=== PATIENT | female | born 1945 | race Caucasian/White ===

== ENCOUNTER 2016-09-09 10:06 | Emergency (ER) | payer OTHER ==
--- NOTE | 2016-09-09 11:43 | DIAGNOSTIC IMAGING REPORT ---
PROCEDURE: XR CHEST 1 VIEW INDICATION: SHORTNESS OF BREATH TECHNIQUE: Portable AP view 1030 hours. COMPARISON: None. FINDINGS: There is mild to moderate pleural and parenchymal scarring at the left lung base. Lungs are otherwise clear. Heart and mediastinum are normal. Thorax is normal. IMPRESSION: 1. Mild to moderate pleural and parenchymal scarring at the left lung base 2. Otherwise negative chest.
--- NOTE | 2016-09-09 13:06 | ED NURSING NOTES ---
Clinical Report - Nurses [facility] [address] [place] [address] 09/09/2016 10:05 Patient: JOANN AWAN TRIAGE Triage time 1005. Acuity: LEVEL 2. Chief Complaint: (Code stroke called at 1005, arrival at 1010. Paatient found down on the ground outside residence. Had gone outside to smoke. Patient remembers standing, then waking with EMS at her side. Alert and confused at the time. Patient states, "I have not slept much since [place], because of my headaches.). Alert. No acute distress. SEPSIS SCREEN: Sepsis Screen: negative. Negative (no infection suspected/documented). VIMAL COMA SCORE: [place] Coma Scale: 15- eyes open spontaneously (4); best verbal response- oriented x 4 (5); best motor response- obeys commands (6). --11:10 Raven Roman R.N. 10:11 09/09/16. BP: 145/102. HR: 83. RR: 18. O2 saturation: 94%. Temp: 98 F. Pain level now: 02/02. --11:10 Raven Roman R.N. Weight: 67.1 kg stated. Height/Length: 66 inches Per Patient. BMI: 23.9. --10:57 Raven Roman R.N. Medications Insulin lantis 16 units hs . --11:04 Rvaen Roman R.N. Caltrate + D 600mg 1 day . --11:05 Raven Roman R.N. Diclofenac Oral 50mg bid . --11:05 Raven Roman R.N. Divalproex Sodium Oral 500mg bid . --11:06 Raven Roman R.N. Simvastatin Oral 20 mg, daily. --11:06 Raven Roman R.N. ASA Oral 81mg day . --11:07 Raven Roman R.N. Fiberlax day . --11:07 Raven Roman R.N. Levothyroxine Sodium Oral 150 mcg, daily. --11:07 Raven Roman R.N. Vitamins Oral 1 pill, daily. --11:07 Raven Roman R.N. TraMADol HCl Oral 50 mg, 3x a day. --11:08 Raven Roman R.N. Acetaminophen Oral 650 mg, 4x a day as needed. --11:08 Raven Roman R.N. Vicodin Oral 1-2 tabs q 6 hrs prn . --11:09 Raven Roman R.N. Allergies Sulfa Antibiotics. --11:10 Raven Roman R.N. History Arrived by EMS. Historian: patient. Primary physician (Rekha). This started today. ( Bedside glucose 368mg/dl at 1010). She has had weakness and a cough. Reports muscle aches. Treatment MEDICAL OFFICE ASST: EMS treatment MEDICAL OFFICE ASST verbally communicated. See EMS report. Oxygen administered by nasal cannula and at 2 liters/minute. Finger stick glucose performed (500). Pre-hospital 12-lead EKG. IV fluid at keep open (35 mL/hr). BP: 200 / 118 sitting. HR: 90. RR: 16. O2 saturation: 93 % room air. ( Awake, alert, oriented.). PAST MEDICAL HX: Immunizations: status is unknown. The patient is post-menopausal. SOCIAL HX: Light tobacco smoker (cigarette)- less than 1/2 a pack per day. No alcohol use or drug use. FALL RISK ASSESSMENT: Fall risk assessment completed. No fall risk identified. NUTRITIONAL RISK ASSESSMENT: The nutritional risk assessment revealed no deficiencies. FUNCTIONAL ASSESSMENT: Functional assessment: no impairments noted. LEARNING NEEDS ASSESSMENT: The learning needs assessment revealed no barriers. SKIN INTEGRITY ASSESSMENT: Skin integrity risk assessment completed. No skin integrity risk identified. --11:10 Raven Roman R.N. ( 1010, provider at the bedside, did a stroke scale, no head ct ordered, at this time.). --11:11 Raven Roman R.N. Treatment MEDICAL OFFICE ASST: IV fluid given (50 ml infused enroute, via lac iv site.). --11:18 Raven Roman R.N. PROBLEMS: Sleep deprevation. Dm . Htn . Graves disease. Vision rt eye zero w/o glasses. . Cholesterol problems. --10:56 Raven Roman R.N. Seizures. --11:10 Raven Roman R.N. ADDITIONAL SURGERIES: Appendectomy. Carpal Tunnel Surgery. Eye rt . Hip rt . --10:56 Raven Roman R.N. Interventions ID band on patient. To room. --11:10 Raven Roman R.N. 10:10 09/09/2016 Site #1 started prior to arrival by EMS via IV in the right antecubital space with an 20g angiocath, with aseptic technique and good blood return; one attempt. Saline lock flushed with 10 mL saline. --10:49 Raven Roman R.N. 10:10 09/09/2016 Site #2 started prior to arrival by EMS via IV in the left antecubital space with an 20g angiocath, with aseptic technique and good blood return; one attempt. Saline lock flushed with saline. --10:49 Raven Roman R.N. PHYSICAL ASSESSMENT To room via stretcher. Patient gowned. GENERAL / NEURO / PSYCH: Alert. Oriented X 4. Appears in pain and anxious. HEENT: Mucous membranes are pink. RESPIRATORY: Respirations not labored. CVS: Normal sinus rhythm noted. Cardiac rhythm: normal sinus rhythm; (82). Capillary refill less than 2 seconds. GI / : Abdomen nontender. SKIN: Skin intact. Skin is warm and dry. Normal skin turgor. --11:12 Raven Roman R.N. NURSING PROGRESS NOTES 10:10. Finger stick glucose: 368 mg/dL. --11:14 Raven Roman R.N. 10:15. Oxygen administered by nasal cannula at 2 liters. tin recovery worker, pulse oximeter and NIBP monitor placed on patient; corporate webmaster- Lead II; monitor alarms on. Patient gowned. Head of bed elevated. Two patient identifiers checked. Call light placed in reach. Side rails up x 2. Bed placed in lowest position. Brakes of bed on. Patient ready for evaluation. --11:13 Raven Roman R.N. 10:20. Patient ID band checked for patient name: patient confirmed. Blood samples drawn from the right antecubital space peripheral IV site with syringe by nurse per protocol ; labeled in presence of the patient and sent to lab: rainbow set and fonseca top. Initial blood discarded and additional blood sent to lab. Line flushed with 10 mL normal saline post blood draw. --11:14 Raven Roman R.N. 10:30. Portable chest x-ray ordered, performed and shown to the ED physician. --11:14 Raven Roman R.N. ( ABG's drawn by RT at 1100.). --11:15 Raven Roman R.N. 10:48 09/09/2016 Insulin REG IVP 10 unit given over 1 minute(s) via site #1. Allergies verified and confirmed 5 rights. IV patency established. IV site checked: no pain, redness, or swelling. IV flushed thoroughly pre- and post-medication administration. IVP given by RN. --11:17 Raven Roman R.N. 11:00 09/09/2016 Started bag #1 1000 mL IV Fluids IV NS (Saline); at 1000 mL/hr over 1 hour(s) via site #2 via IV pump. Allergies verified and confirmed 5 rights. IV patency established. IV site checked: no pain, redness, or swelling. IV flushed thoroughly pre- and post-medication administration. --11:16 Raven Roman R.N. 10:45. ( Up to the bsc and voided w/o difficulty, 300ml clear urine.). --11:19 Raven Roman R.N. 11:19 09/09/16. BP: 127/90. HR: 64. RR: 17. O2 saturation: 94% on room air. --11:20 Raven Roman R.N. EKG time: (10:34 AM). EKG was performed by a tech and shown to the ED physician. --11:29 Tori Jimenez 12:24 09/09/16. Patient ID band checked for patient name: patient confirmed. Instructions provided to collect clean catch urine and patient verbalized understanding. Clean catch urine collected with return of yellow-colored clear urine; sample sent to lab for urinalysis and culture. Specimen labeled in the presence of the patient. --12:24 Raven Roman R.N. 12:24 09/09/16. BP: 124/70. HR: 71. RR: 14. O2 saturation: 95% on room air. 11:19 09/09/16. BP: 127/90. HR: 64. RR: 17. O2 saturation: 94% on room air. --12:25 Raven Roman R.N. Reassurance given to the patient (Patient emotional, re missing brunch and confucianist.). --12:55 Raven Roman R.N. 13:07 09/09/2016 Acetaminophen (APAP) PO 975 mg given. Allergies verified and confirmed 5 rights. --13:07 Raven Roman R.N. Glucose: 101. --13:40 Tori Jimenez 14:27 09/09/2016 Site #1 removed upon discharge. Catheter intact. Bandaid applied. --14:52 Raven Roman R.N. 14:30 09/09/2016 Site #2 removed. Catheter intact. Bandaid applied. --14:54 Raven Roman R.N. DISPOSITION / DISCHARGE 15:15. Condition at departure: improved. No learning barriers present. Discharge instructions provided and reviewed with the patient. Patient verbalized understanding. Written instructions provided in French. ( Patient waiting for son in the waiting room.). Medication list reviewed and validated. --16:26 Raven Roman R.N. 15:15 09/09/16. BP: 126/74. HR: 71. RR: 16. O2 saturation: 97% on room air. Pain level now: 10/05. 13:07 09/09/16. O2 saturation: 97% on room air. 12:24 09/09/16. BP: 124/70. HR: 71. RR: 14. O2 saturation: 95% on room air. 11:19 09/09/16. BP: 127/90. HR: 64. RR: 17. O2 saturation: 94% on room air. 10:11 09/09/16. BP: 145/102. HR: 83. RR: 18. O2 saturation: 94%. Temp: 98 F. Pain level now: 02/02. --16:26 Raven Roman R.N. Locked/Released at 09/09/2016 16:26 by Raven Roman R.N.
--- NOTE | 2016-09-09 13:06 | ED NURSING NOTES ---
Clinical Report - Nurses [facility] [address] [place] [address] 09/09/2016 10:05 Patient: JOANN AWAN TRIAGE Triage time 1005. Acuity: LEVEL 2. Chief Complaint: (Code stroke called at 1005, arrival at 1010. Paatient found down on the ground outside residence. Had gone outside to smoke. Patient remembers standing, then waking with EMS at her side. Alert and confused at the time. Patient states, "I have not slept much since [place], because of my headaches.). Alert. No acute distress. SEPSIS SCREEN: Sepsis Screen: negative. Negative (no infection suspected/documented). VIMAL COMA SCORE: [place] Coma Scale: 15- eyes open spontaneously (4); best verbal response- oriented x 4 (5); best motor response- obeys commands (6). --11:10 Raevn Roman R.N. 10:11 09/09/16. BP: 145/102. HR: 83. RR: 18. O2 saturation: 94%. Temp: 98 F. Pain level now: 02/02. --11:10 Raven Roman R.N. Weight: 67.1 kg stated. Height/Length: 66 inches Per Patient. BMI: 23.9. --10:57 Raven Roman R.N. Medications Insulin lantis 16 units hs . --11:04 Raven Roman R.N. Caltrate + D 600mg 1 day . --11:05 Raven Roman R.N. Diclofenac Oral 50mg bid . --11:05 Raven Roman R.N. Divalproex Sodium Oral 500mg bid . --11:06 Raven Roman R.N. Simvastatin Oral 20 mg, daily. --11:06 Raven Roman R.N. ASA Oral 81mg day . --11:07 Raven Roman R.N. Fiberlax day . --11:07 Raven Roman R.N. Levothyroxine Sodium Oral 150 mcg, daily. --11:07 Raven Roman R.N. Vitamins Oral 1 pill, daily. --11:07 Raven Roman R.N. TraMADol HCl Oral 50 mg, 3x a day. --11:08 Raven Roman R.N. Acetaminophen Oral 650 mg, 4x a day as needed. --11:08 Raven Roman R.N. Vicodin Oral 1-2 tabs q 6 hrs prn . --11:09 Raven Roman R.N. Allergies Sulfa Antibiotics. --11:10 Raven Roman R.N. History Arrived by EMS. Historian: patient. Primary physician (Rekha). This started today. ( Bedside glucose 368mg/dl at 1010). She has had weakness and a cough. Reports muscle aches. Treatment TUMBLER TENDER: EMS treatment TUMBLER TENDER verbally communicated. See EMS report. Oxygen administered by nasal cannula and at 2 liters/minute. Finger stick glucose performed (500). Pre-hospital 12-lead EKG. IV fluid at keep open (35 mL/hr). BP: 200 / 118 sitting. HR: 90. RR: 16. O2 saturation: 93 % room air. ( Awake, alert, oriented.). PAST MEDICAL HX: Immunizations: status is unknown. The patient is post-menopausal. SOCIAL HX: Light tobacco smoker (cigarette)- less than 1/2 a pack per day. No alcohol use or drug use. FALL RISK ASSESSMENT: Fall risk assessment completed. No fall risk identified. NUTRITIONAL RISK ASSESSMENT: The nutritional risk assessment revealed no deficiencies. FUNCTIONAL ASSESSMENT: Functional assessment: no impairments noted. LEARNING NEEDS ASSESSMENT: The learning needs assessment revealed no barriers. SKIN INTEGRITY ASSESSMENT: Skin integrity risk assessment completed. No skin integrity risk identified. --11:10 Raven Roman R.N. ( 1010, provider at the bedside, did a stroke scale, no head ct ordered, at this time.). --11:11 Raven Roman R.N. Treatment TUMBLER TENDER: IV fluid given (50 ml infused enroute, via lac iv site.). --11:18 Raven Roman R.N. PROBLEMS: Sleep deprevation. Dm . Htn . Graves disease. Vision rt eye zero w/o glasses. . Cholesterol problems. --10:56 Raven Roman R.N. Seizures. --11:10 Raven oRman R.N. ADDITIONAL SURGERIES: Appendectomy. Carpal Tunnel Surgery. Eye rt . Hip rt . --10:56 Raven Roman R.N. Interventions ID band on patient. To room. --11:10 Raven Roman R.N. 10:10 09/09/2016 Site #1 started prior to arrival by EMS via IV in the right antecubital space with an 20g angiocath, with aseptic technique and good blood return; one attempt. Saline lock flushed with 10 mL saline. --10:49 Raven Roman R.N. 10:10 09/09/2016 Site #2 started prior to arrival by EMS via IV in the left antecubital space with an 20g angiocath, with aseptic technique and good blood return; one attempt. Saline lock flushed with saline. --10:49 Raven Roman R.N. PHYSICAL ASSESSMENT To room via stretcher. Patient gowned. GENERAL / NEURO / PSYCH: Alert. Oriented X 4. Appears in pain and anxious. HEENT: Mucous membranes are pink. RESPIRATORY: Respirations not labored. CVS: Normal sinus rhythm noted. Cardiac rhythm: normal sinus rhythm; (82). Capillary refill less than 2 seconds. GI / : Abdomen nontender. SKIN: Skin intact. Skin is warm and dry. Normal skin turgor. --11:12 Raven Roman R.N. NURSING PROGRESS NOTES 10:10. Finger stick glucose: 368 mg/dL. --11:14 Raven Roman R.N. 10:15. Oxygen administered by nasal cannula at 2 liters. timber mill worker, pulse oximeter and NIBP monitor placed on patient; boiler/chiller technician- Lead II; monitor alarms on. Patient gowned. Head of bed elevated. Two patient identifiers checked. Call light placed in reach. Side rails up x 2. Bed placed in lowest position. Brakes of bed on. Patient ready for evaluation. --11:13 Raven Roman R.N. 10:20. Patient ID band checked for patient name: patient confirmed. Blood samples drawn from the right antecubital space peripheral IV site with syringe by nurse per protocol ; labeled in presence of the patient and sent to lab: rainbow set and fonseca top. Initial blood discarded and additional blood sent to lab. Line flushed with 10 mL normal saline post blood draw. --11:14 Raven Roman R.N. 10:30. Portable chest x-ray ordered, performed and shown to the ED physician. --11:14 Raven Roman R.N. ( ABG's drawn by RT at 1100.). --11:15 Raven Roman R.N. 10:48 09/09/2016 Insulin REG IVP 10 unit given over 1 minute(s) via site #1. Allergies verified and confirmed 5 rights. IV patency established. IV site checked: no pain, redness, or swelling. IV flushed thoroughly pre- and post-medication administration. IVP given by RN. --11:17 Raven Roman R.N. 11:00 09/09/2016 Started bag #1 1000 mL IV Fluids IV NS (Saline); at 1000 mL/hr over 1 hour(s) via site #2 via IV pump. Allergies verified and confirmed 5 rights. IV patency established. IV site checked: no pain, redness, or swelling. IV flushed thoroughly pre- and post-medication administration. --11:16 Raven Roman R.N. 10:45. ( Up to the bsc and voided w/o difficulty, 300ml clear urine.). --11:19 Raven Roman R.N. 11:19 09/09/16. BP: 127/90. HR: 64. RR: 17. O2 saturation: 94% on room air. --11:20 Raven Roman R.N. EKG time: (10:34 AM). EKG was performed by a tech and shown to the ED physician. --11:29 Tori Jimenez 12:24 09/09/16. Patient ID band checked for patient name: patient confirmed. Instructions provided to collect clean catch urine and patient verbalized understanding. Clean catch urine collected with return of yellow-colored clear urine; sample sent to lab for urinalysis and culture. Specimen labeled in the presence of the patient. --12:24 Raven Roman R.N. 12:24 09/09/16. BP: 124/70. HR: 71. RR: 14. O2 saturation: 95% on room air. 11:19 09/09/16. BP: 127/90. HR: 64. RR: 17. O2 saturation: 94% on room air. --12:25 Raven Roman R.N. Reassurance given to the patient (Patient emotional, re missing brunch and scientologist.). --12:55 Raven Roman R.N. 13:07 09/09/2016 Acetaminophen (APAP) PO 975 mg given. Allergies verified and confirmed 5 rights. --13:07 Raven Roman R.N. Glucose: 101. --13:40 Tori Jimenez 14:27 09/09/2016 Site #1 removed upon discharge. Catheter intact. Bandaid applied. --14:52 Raven Roman R.N. 14:30 09/09/2016 Site #2 removed. Catheter intact. Bandaid applied. --14:54 Raven Roman R.N. DISPOSITION / DISCHARGE 15:15. Condition at departure: improved. No learning barriers present. Discharge instructions provided and reviewed with the patient. Patient verbalized understanding. Written instructions provided in [place]. ( Patient waiting for son in the waiting room.). Medication list reviewed and validated. --16:26 Raven Roman R.N. 15:15 09/09/16. BP: 126/74. HR: 71. RR: 16. O2 saturation: 97% on room air. Pain level now: 10/05. 13:07 09/09/16. O2 saturation: 97% on room air. 12:24 09/09/16. BP: 124/70. HR: 71. RR: 14. O2 saturation: 95% on room air. 11:19 09/09/16. BP: 127/90. HR: 64. RR: 17. O2 saturation: 94% on room air. 10:11 09/09/16. BP: 145/102. HR: 83. RR: 18. O2 saturation: 94%. Temp: 98 F. Pain level now: 02/02. --16:26 Raven Roman R.N. Locked/Released at 09/09/2016 16:26 by Raven Roman R.N.
--- NOTE | 2016-09-09 13:06 | ED CLINICAL REPORT ---
Clinical Report - Physicians/Mid Levels [facility] [address] [place] [address] 09/09/2016 10:05 Patient: JOANN AWAN Time Seen: 10:22; upon arrival, initial patient contact. Arrived- By ambulance. Historian- patient and EMS personnel. HISTORY OF PRESENT ILLNESS Chief Complaint: WEAKNESS. The patient has had new onset of weakness of the left arm (moderate), (several). No numbness, tingling, visual disturbance, impaired swallowing or recent fall. She has had difficulty with speech. She has had difficulty walking. This started about 1 hour ago and patient was witnessed to be last known well (at 0930 AM). It is gone now. Is now gone (Sypmtoms for BLS, once Medics arrived, asymptomatic). At its maximum deficit described as moderate. When seen in the E.D., it was gone. No dizziness, altered mental status, seizure or blackouts. Usually is alert and oriented X3 and has normal mobility. Similar symptoms previously: None. Recent medical care: Not recently seen/assessed. REVIEW OF SYSTEMS No fever, headache, head injury, chest pain or difficulty breathing. No cough or sputum production. All systems otherwise negative, except as recorded above. PAST HISTORY ( Sleep deprevation. Dm . Htn . Graves disease. Vision rt eye zero w/o glasses. . Cholesterol problems. Seizures. Exopthalmos ADDITIONAL SURGERIES: Appendectomy. Carpal Tunnel Surgery. Eye rt . Hip rt .). SOCIAL HISTORY Current every day smoker. No alcohol use or drug use. ADDITIONAL NOTES The nursing notes have been reviewed with agreement regarding the chief complaint, PMH and patient medications and allergies. PHYSICAL EXAM Vital Signs: 09/09/2016 10:11 BP: 145/102. HR: 83. RR: 18. O2 saturation: 94%. Temp: 98 F. Pain level now: 610. Have been reviewed. Hypertensive. Heart rate normal. Respiratory rate normal. Temperature normal. Oxygen saturation low. Appearance: Alert. No acute distress. Head: Head atraumatic. Eyes: Pupils equal, round and reactive to light. Right eye: (Exopthalomos). 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 ENT: Normal ENT inspection. Airway intact. Neck: Normal inspection. Neck supple. CVS: Normal heart rate and rhythm. Heart sounds normal. Respiratory: No respiratory distress. Breath sounds normal. Skin: Skin warm and dry. Normal skin color. No rash. Extremities: Extremities exhibit normal ROM. No lower extremity edema. Neuro: Alert. Oriented X 3. Mood/affect normal. Speech normal. Cranial nerves normal (as tested). No cerebellar findings. No motor deficit. No sensory deficit. LABS, X-RAYS, AND EKG EKG: EKG time: (1034). No acute process. No acute ischemia. Normal sinus rhythm. Rate: 76. Normal P waves. Normal ALTA. Normal QRS complex. Normal axis. Normal QT and QTc. ST elevation in lead V3- consistent with early repolarization. The study has been interpreted contemporaneously by me. The study has been independently viewed by me. The EKG appears to be a good tracing. Interpretation time: 1035. Chest X-ray: (1. Mild to moderate pleural and parenchymal scarring at the left lung base 2. Otherwise negative chest.). Views: AP. Technique: good. The X-rays were independently viewed by me and interpreted contemporaneously by me. Prior films were not available for comparison. Laboratory Tests: UA-Culture if indicated: (JULIA: 09/09/2016 12:15) ( MsgRcvd 09/09/2016 12:36) Final results Test Result Flag Units (Reference) URINE COLOR YELLOW URINE APPEARANCE CLEAR URINE GLUCOSE 3+ (NEGATIVE) URINE BILIRUBIN NEGATIVE (NEGATIVE) URINE KETONE NEGATIVE (NEGATIVE) URINE SPECIFIC GRAVITY 1.010 (1.010-1.030) URINE PH 6.0 (5.0-8.0) URINE PROTEIN NEGATIVE (NEGATIVE) URINE UROBILINOGEN 0.2 EU/dL (0.2-1.0) URINE NITRITE NEGATIVE (NEGATIVE) URINE BLOOD NEGATIVE (NEGATIVE) URINE LEUK ESTERASE POSITIVE (NEGATIVE) URINE RBC NONE SEEN rbc/hpf (0-1) URINE WBC 15-25 wbc/hpf (0-1) URINE EPITHELIAL CELLS 3-5 EPI/hpf (0-5) URINE BACTERIA MODERATE (2+ TO 3+) (NONE SEEN) 2+ URINE COMMENT CULTURE INDICATED URINE CULTURES ARE SET-UP BASED ON THE FOLLOWING CRITERIA:POSITIVE NITRITEPOSITIVE LEUKOCYTE ESTERASEGREATER THAN 10 WHITE BLOOD CELLSMODERATE (2+) OR GREATER BACTERIA CBC w Diff: (JULIA: 09/09/2016 10:15) ( WvgRcvd 09/09/2016 10:35) Final results Test Result Flag Units (Reference) WHITE BLOOD COUNT 9.4 K/uL (4.5-11.5) RED BLOOD COUNT 4.58 M/uL (4.00-5.20) HEMOGLOBIN 13.6 gm/dL (12.0-16.0) HEMATOCRIT 39.5 % (36.0-46.0) MEAN CELL VOLUME 86 fL (80-100) MEAN CORPUSCULAR HGB 30 pg (26-34) MEAN CORPUSCULAR HGB CONC 35 g/dL (31-37) RED CELL DISTRIBUTION WIDTH 14.5 % (11.6-14.8) PLATELET COUNT 216 K/uL (150-400) NEUTROPHIL % 68.5 % (50-75) LYMPH % 24.7 L % (25-40) MONO % 5.1 % (3-14) EOSINOPHIL % 1.3 % (0-4) BASOPHIL % 0.4 % (0-2) PT with INR: (JULIA: 09/09/2016 10:15) ( MsgRcvd 09/09/2016 10:39) Final results Test Result Flag Units (Reference) INR 0.9 (0.8-1.2) Low Intensity Therapy: INR 1.5-2.0 PT range 18.5-23.1Mod.Intensity Therapy: INR 2.0-3.0 PT range 23.1-31.5High Intensity Therapy: INR 2.5-3.5 PT range 27.4-35.5High Intensity Therapy 2: INR 3.0-4.0 PT range 31.5-39.3 APTT 33 SECONDS (24-34) FIBRINOGEN 334 mg/dL (193-455) D-DIMER QUANTITATIVE 0.42 ug/mLFEU (0.27-0.52) The primary value of this quantitative assay relates toits negative predictive value (i.e. exclusion) of pulmonaryembolism/deep vein thrombosis/DIC.Elevated levels of d-dimer may also occur with:, age, cancer, inflammation, liver disease,post-op, infection, hematoma, coronary disease, peripheralarteriopathy, bleeding disorders and thrombolytic treatment.Results should be correlated with other clinical andradiological data.Testing Methodology: Latex Immunoassay Acetone, Serum: (JULIA: 09/09/2016 10:15) ( MsgRcvd 09/09/2016 10:49) Final results Test Result Flag Units (Reference) ACETONE, SERUM QUALITATIVE NEGATIVE (NEGATIVE) CMP: (JULIA: 09/09/2016 10:15) ( MsgRcvd 09/09/2016 10:42) Final results Test Result Flag Units (Reference) GLUCOSE 433 H mg/dL (70-110) BUN 30 H mg/dL (7-18) CREATININE 1.3 mg/dL (0.6-1.3) Estimated GFR 42.92 mL/min Estimated GFR- 52.01 mL/min Note: Persistent reduction over 3 months in eGFR<60 mL/min/1.73 m2 defines CKD. Patients with eGFR values>=60 mL/min/1.73 m2 may also have CKD if evidence ofpersistent proteinuria. Additional information may be foundat www.kidney.org. SODIUM 134 L mmol/L (136-145) POTASSIUM 4.9 mmol/L (3.5-5.1) CHLORIDE 97 L mmol/L (98-107) CARBON DIOXIDE 29 mmol/L (21-32) CALCIUM 8.9 mg/dL (8.5-10.1) TOTAL PROTEIN 7.1 g/dL (6.4-8.2) ALBUMIN 3.8 g/dL (3.3-5.0) BILIRUBIN, TOTAL 0.5 mg/dL (0.0-1.0) ALKALINE PHOSPHATASE 84 U/L (46-116) AST (SGOT) 56 H U/L (15-37) ALT (SGPT) 65 U/L (12-78) ABG: (JULIA: 09/09/2016 10:25) ( [facility] 09/09/2016 11:07) Final results Test Result Flag Units (Reference) FIO2 0.28 L % (20-101) ABG MODE OF DELIVERY NC MODIFIED DARRICK TEST POSITIVE? YES LITERS PER MIN. 2 L/MIN (0-20) ABG PATIENT RESP RATE 20 /MIN ARTERIAL BLOOD GAS SITE RR ARTERIAL BLOOD GAS pH 7.48 H (7.35-7.45) ABG PCO2 31.7 L mmHg (35-45) ABG PO2 63.8 mmHg (60.0-80.0) ABG BASE EXCESS 0.4 H mmol/L (-6.0--6.0) ABG HCO3 23.6 mmol/L (20.0-26.0) ABG TCO2 24.6 mmol/L (24.0-30.0) ABG [id number] 101.2 H mmHg (7.0-14.0) *NOTE: Normal rangeis based on aFIO2 of 21% ABG SAT O2 92.2 L % (95.1-100.0) ABG TOTAL HEMOGLOBIN 14.0 g/dL (12.0-16.0) ABG O2 HEMOGLOBIN 90.3 L % (95.0-100.0) ABG CARBOXYHEMOGLOBIN 1.8 H % (0.5-1.5) ABG METHEMOGLOBIN 0.3 L % (0.4-1.5) ABG RHEMOGLOBIN 7.6 % . PROGRESS AND PROCEDURES Course of Care: 13:05 09/09/16. Pt without any signs of CVA upon arrival. A&O x 3, no pronator drift and nl CN exam. 09/09/2016 13:07 O2 saturation: 97%. 09/09/2016 12:24 BP: 124/70. HR: 71. RR: 14. O2 saturation: 95%. Vital Signs: have been reviewed as normal. Disposition: Discharged to care home in good and improved condition. Condition: good. CLINICAL IMPRESSION Moderate hyperglycemia INSTRUCTIONS Follow a low salt diet. Do not smoke. Seek medical help to quit smoking. Your Current Medications: CONTINUE TAKING THE FOLLOWING MEDICATIONS: Acetaminophen Oral : 650 mg 4x a day, prn. ASA Oral : 81mg day. Caltrate + D 600mg 1 day *. Diclofenac Oral : 50mg bid. Divalproex Sodium Oral : 500mg bid. Fiberlax day *. Insulin lantis 16 units hs *. Levothyroxine Sodium Oral : 150 mcg daily. Vitamins Oral : 1 pill daily. Simvastatin Oral : 20 mg daily. TraMADol HCl Oral : 50 mg 3x a day. Vicodin Oral : 1-2 tabs q 6 hrs prn. Follow-up: Follow up with your doctor in about two days. Call for an appointment. Screening today revealed the patient's blood pressure to be in the normal range. (Electronically signed by Hunter Parker Dr. 09/09/2016 22:54)
--- NOTE | 2016-09-09 13:06 | ED ORDER SUMMARY ---
..... Patient: JOANN AWAN OrderSheet [facility] VisitID: [id number] [address] [place] [address] 71y, F Registration Date/Time: 09/09/2016 ORDER SHEET Weight: 67.1 kg (stated) Allergies: Sulfa Antibiotics GENERAL ORDERS: Chest 1V Urgent (10:09/09/2016 Franko Thomas) (Ack 10:38 LTapper) (11:00 Daryl) Stroke Panel Stat (:09/09/2016 Franko Thomas) (Ack 10:38 LTapper) (11:17 SRoberts R.N.) Acetone, Serum Urgent (:09/09/2016 Franko Thomas) (Ack 10:38 LTapper) (11:17 SRoberts R.N.) ABG (G) Urgent (:09/09/2016 Franko Thomas) (Ack 10:38 LTapper) (11:17 SRoberts R.N.) UA-Culture if indicated Urgent (10:09/09/2016 Franko Thomas) (Ack 10:38 LTapper) (13:06 SRoberts R.N.) MEDICATION ORDERS: Acetaminophen PO 1,000 mg (NOW) (13:05 09/09/2016 Franko Thomas) (13:07 SRoberts R.N.) IV FLUIDS: IV NS : initial bolus none -, then 1000 mL/hr for X1 (NOW) (10:09/09/2016 Franko Thomas) (11:16 SRoberts R.N.) Insulin Reg IV 10 units (HIGH ALERT MEDICATION, NOW) (10:30 09/09/2016 Franko Thomas) (11:17 SRoberts R.N.) ORDER SHEET NOTES: [Electronically signed by Raven Roman R.N. (16:26 09/09/2016)] [Electronically signed by Hunter Parker Dr. (22:54 09/09/2016)] [Electronically locked/signed by Raven Roman R.N. (16:09/09/2016)]
--- NOTE | 2016-09-09 13:06 | ED ORDER SUMMARY ---
..... Patient: JOANN AWAN OrderSheet [facility] VisitID: [id number] [address] [place] [address] 71y, F Registration Date/Time: 09/09/2016 ORDER SHEET Weight: 67.1 kg (stated) Allergies: Sulfa Antibiotics GENERAL ORDERS: Chest 1V Urgent (10:09/09/2016 Franko Thomas) (Ack 10:38 LTapper) (11:00 Daryl) Stroke Panel Stat (:09/09/2016 Franko Thomas) (Ack 10:38 LTapper) (11:17 SRoberts R.N.) Acetone, Serum Urgent (:09/09/2016 Franko Thomas) (Ack 10:38 LTapper) (11:17 SRoberts R.N.) ABG (G) Urgent (:09/09/2016 Franko Thomas) (Ack 10:38 LTapper) (11:17 SRoberts R.N.) UA-Culture if indicated Urgent (10:09/09/2016 Franko Thomas) (Ack 10:38 LTapper) (13:06 SRoberts R.N.) MEDICATION ORDERS: Acetaminophen PO 1,000 mg (NOW) (13:05 09/09/2016 Franko Thomas) (13:07 SRoberts R.N.) IV FLUIDS: IV NS : initial bolus none -, then 1000 mL/hr for X1 (NOW) (10:09/09/2016 Franko Thomas) (11:16 SRoberts R.N.) Insulin Reg IV 10 units (HIGH ALERT MEDICATION, NOW) (10:30 09/09/2016 Franko Thomas) (11:17 SRoberts R.N.) ORDER SHEET NOTES: [Electronically signed by Raven Roman R.N. (16:26 09/09/2016)] [Electronically signed by Hunter Parker Dr. (22:54 09/09/2016)] [Electronically locked/signed by Raven Roman R.N. (16:09/09/2016)]
--- NOTE | 2016-09-09 22:55 | ED DISCHARGE INSTRUCTIONS ---
Patient: JOANN AWAN General Instructions [facility] VisitID: [id number] [place] [address] 71y, F Registration Date/Time: 09/09/2016 Moderate hyperglycemia INSTRUCTIONS Follow a low salt diet. Do not smoke. Seek medical help to quit smoking. Your Current Medications: CONTINUE TAKING THE FOLLOWING MEDICATIONS: Acetaminophen Oral : 650 mg 4x a day, prn. ASA Oral : 81mg day. Caltrate + D 600mg 1 day *. Diclofenac Oral : 50mg bid. Divalproex Sodium Oral : 500mg bid. Fiberlax day *. Insulin lantis 16 units hs *. Levothyroxine Sodium Oral : 150 mcg daily. Vitamins Oral : 1 pill daily. Simvastatin Oral : 20 mg daily. TraMADol HCl Oral : 50 mg 3x a day. Vicodin Oral : 1-2 tabs q 6 hrs prn. Follow-up: Follow up with your doctor in about two days. Call for an appointment. Screening today revealed the patient's blood pressure to be in the normal range. ADDITIONAL INFORMATION Diabetes with High Blood Sugar You have been treated for high blood sugar (hyperglycemia). This may be becauseof an infection or other illness;eating too many sweets or starches ; not taking enough insulin. Home care High blood sugar may cause symptoms that you can learn to recognize, such as these: If you feel like your blood sugar may be too high, measure it using a blood or urine test. If it is above your usual range, use the "sliding scale"rRegular insulin dose your doctor gave you to correct this. If no "sliding scale" orders were given, contact your doctor for further advice. If your blood sugar is over 300, and you can't reach your doctor, go to the hospital emergency room. Monitor and write down your blood sugars - and insulin dose, if you take insulin - atleast twice a day. Do this before breakfast and before dinner. Do this for the next 3 to 5 days. Follow-up care Follow up with your health care provderduring the next week to review your blood sugar records. You will find out if you need to adjust your dose of insulin or other medicine for blood sugar. When to seek medical care Get prompt medical attention if either of these occur: High blood sugar.Symptoms are frequent urination, feeling dizzy, thirst, headache, nausea or vomiting, abdominal pain, and drowsiness or loss of consciousness. Low blood sugar. Symptoms are fatigue, headache, shakes, excess sweating, hunger, anxiety, reduced vision, drowsiness, weakness, confusion or loss of consciousness, and seizure. Low-Salt Diet (2 Grams/Day) This diet eliminates foods that are high in salt and restricts the amount of salt that you cook with. It is most often used for patients with high blood pressure, edema (fluid retention), kidney, liver, and heart disease. Table salt contains the mineral sodium. The body needs sodium to work normally. But too much sodium can make your health problems worse. Your healthcare provider is recommending a low-salt (also called low-sodium) diet for you. Your total daily allowance of salt (sodium) is 2 grams. This equals 2,000 milligrams (mg). It is less than 1 teaspoon of table salt. This means you can have only about 700 mg of sodium at each meal. When you cook, limit the salt you use. And if you can avoid using salt, even better. Do not add salt at the table. So, throw away the saltshaker! When shopping, read the package labels. Salt is often called sodium on the label. Choose foods that are Salt-Free, Low Salt, or Very Low Salt. Note that foods with Reduced Salt may notlower your salt intake enough. Beverages OK: Tea, coffee, carbonated beverages, juices AVOID: Flavored international coffees, electrolyte replacement drinks, sports beverages Bread & Cereals OK: All regular bread, rolls, cereals, cakes; low-salt crackers, matzoh crackers AVOID: Salted crackers, pretzels, popcorn; greenlandic toast, pancakes, muffins Fruits & Desserts OK: Ice cream, frozen yogurt, juice bars, gelatin (Jell-O), cookies and pies, sugar, honey, jelly, hard candy AVOID: Most pies, cakes and cookies prepared or processed with salt, instant pudding Meats OK: All fresh meat, fish, poultry, low-salt tuna AVOID: Smoked, pickled, brine-cured, or salted meats or fish. Thisincludes phillips, chipped beef, corned beef, hot dogs, luncheon meats, ham, kosher meats, salt pork, sausage, canned tuna, salted codfish, smokedsalmon, fields, sardines, or anchovies. Dairy OK: Milk, chocolate milk, hot chocolate mix; eggs, Low Salt cheeses, yogurt, egg substitute AVOID: Processed cheese, cheese spreads, Roquefort, Camembert, and cottage cheese, buttermilk, instant breakfast drink Beans, Potatoes & Pasta OK: Dry beans, split peas, lentils, potatoes, rice, macaroni, noodles, spaghetti without added salt AVOID: Potato chips, tortilla chips, and similar products Soups OK: Low-salt soups and broths made with allowed foods AVOID: Bouillon cubes, soups with smoked or salted meats, regular soup and broth Vegetables OK: Most are okay; low-salt tomato and vegetable juices AVOID: Sauerkraut and other brine-soaked vegetables, pickles and other pickled vegetables, tomato juice, olives Seasoning & Spices OK: Most seasonings are okay. Good substitutes for salt include: fresh herb blends, Tabasco, lemon, garlic, miller, vinegar, dry mustard, parsley, cilantro, horseradish, tomato paste, regular margarine, mayonnaise, butter, cream cheese, vegetable oil, cream, low-salt salad dressing and gravy AVOID: Regular ketchup, relishes, pickles, soy sauce, teriyaki sauce, Worcestershire sauce, BBQ sauce, tartar sauce, meat tenderizer, chili sauce, regular gravy, regular salad dressing How To Quit Smoking Smoking is one of the hardest habits to break. About half of all those who have ever smoked have been able to quit, and most of those (about 70%) who still smoke want to quit. Here are some of the best ways to stop smoking. Keep Trying: It takes most smokers about 8 tries before they are finally able to fully quit. So, the more often you try and fail, the better your chance of quitting the next time! So, don't give up! Go Cold [place]: Most ex-smokers quit cold turkey. Trying to cut back gradually doesn't seem to work as well, perhaps because it continues the smoking habit. Also, it is possible to fool yourself by inhaling more while smoking fewer cigarettes. This results in the same amount of nicotine in your body! Get Support: Support programs can make an important difference, especially for the heavy smoker. These groups offer lectures, methods to change your behavior and peer support. Call the free national Quitline for more information. 451-EJZX-YFK (617-939-0514). Low-cost or free programs are offered by many hospitals, local chapters of the [place] [employer] (730-620-0407) and the [place] [employer] (759-152-0668). Support at home is important too. Non-smokers can help by offering praise and encouragement. If the smoker fails to quit, encourage them to try again! Pzlt-Amb-Gfvuknj Medicines: For those who can't quit on their own, Nicotine Replacement Therapy (NRT) may make quitting much easier. Certain aids such as the nicotine patch, gum and lozenge are available without a prescription. However, it is best to use these under the guidance of your doctor. The skin patch provides a steady supply of nicotine to the body. Nicotine gum and lozenge gives temporary bursts of low levels of nicotine. Both methods take the edge off the craving for cigarettes. WARNING: If you feel symptoms of nicotine overdose, such as nausea, vomiting, dizziness, weakness, or fast heartbeat, stop using these and see your doctor. Prescription Medicines: After evaluating your smoking patterns and prior attempts at quitting, your doctor may offer a prescription medicine such as bupropion (Zyban, Wellbutrin), varenicline (Chantix, Champix), a niocotine inhaler or nasal spray. Each has its unique advantage and side effects which your doctor can review with you. Health Benefits Of Quitting: The benefits of quitting start right away and keep improving the longer you go without smokin minutes: blood pressure and pulse return to normal 8 hours: oxygen levels return to normal 2 days: ability to smell and taste begins to improve as damaged nerves start to regrow 2-3 weeks: circulation and lung function improves 1-9 months: decreased cough, congestion and shortness of breath; less tired 1 year: risk of heart attack decreases by half 5 years: risk of lung cancer decreases by half; risk of stroke becomes the same as a non-smoker For information about how to quit smoking, visit the following links: National Cancer [place] , Clearing the Air, Quit Smoking Today - an online booklet. http://www.smokefree.gov/pubs/clearing_the_air.pdf Smokefree.gov http://smokefree.gov/ QuitNet http://www.quitnet.com/ You have been given the following additional information: Diabetic Hyperglycemia Diet, Low Salt (2Gm) Smoking Cessation (Electronically signed by Hunter Parker Dr. 09/09/2016 22:54)
--- NOTE | 2016-09-09 22:55 | ED MAR SUMMARY ---
..... Medication Administration Record [facility] [address] [place] [address] Patient: JOANN AWAN Visit ID: [id number] 71y, F Weight: 67.1 kg Height/Length: 66 in BMI: 23.9 ALLERGIES: Sulfa Antibiotics Given 10:48 09/09/2016 Raven Roman R.N. Medication Administered: INSULIN REG [IVP], Dose: 10 unit IVP over 1 minute(s), Site: #1 right AC. Medication Ordered: Insulin Reg IV 10 units (HIGH ALERT MEDICATION, NOW). Start 11:00 09/09/2016 Raven Roman R.N. Medication Administered: IV NS (SALINE), Dose: IV Fluids over 1 hour(s), Rate: 1000 mL/hr, Dispensed: 1000 mL bag, Site: #2 left AC. Medication Ordered: IV NS : initial bolus none -, then 1000 mL/hr for X1 (NOW). Given 13:07 09/09/2016 Raven Roman R.N. Medication Administered: ACETAMINOPHEN [PO] (APAP), Dose: 975 mg PO. Medication Ordered: Acetaminophen PO 1,000 mg (NOW).
--- NOTE | 2016-09-09 22:55 | ED MED RECONCILIATION SUMMARY ---
Patient: JOANN AWAN Medication Reconciliation Report [facility] VisitID: [id number] [address] [place] [address] 71y, F Registration Date/Time: 09/09/2016 Weight: 67.1 kg Height/Length: 66 in. BMI: 23.9 ALLERGIES: Sulfa Antibiotics The patient's Home Medications are listed below: CONTINUE TAKING THE FOLLOWING MEDICATIONS: Acetaminophen Oral 650 mg, 4x a day ASA Oral 81mg day Caltrate + D 600mg 1 day Diclofenac Oral 50mg bid Divalproex Sodium Oral 500mg bid Fiberlax day Insulin lantis 16 units hs Levothyroxine Sodium Oral 150 mcg, daily Vitamins Oral 1 pill, daily Simvastatin Oral 20 mg, daily TraMADol HCl Oral 50 mg, 3x a day Vicodin Oral 1-2 tabs q 6 hrs prn The source(s) of the original Home Medication information: Not obtained. The following Medications were given to the patient in the Emergency Department: IV NS IV Fluids bolus 0, then 1000 mL/hr, administered: 09/09/2016 11:00:00 AM Insulin REG [IVP] IVP 10 unit, administered: 09/09/2016 10:48:00 AM Acetaminophen [PO] PO 975 mg, administered: 09/09/2016 1:07:00 PM The following Medications were prescribed to the patient: None.
--- NOTE | 2016-09-09 22:55 | ED MAR SUMMARY ---
..... Medication Administration Record [facility] [address] [place] [address] Patient: JOANN AWAN Visit ID: [id number] 71y, F Weight: 67.1 kg Height/Length: 66 in BMI: 23.9 ALLERGIES: Sulfa Antibiotics Given 10:48 09/09/2016 Raven Roman R.N. Medication Administered: INSULIN REG [IVP], Dose: 10 unit IVP over 1 minute(s), Site: #1 right AC. Medication Ordered: Insulin Reg IV 10 units (HIGH ALERT MEDICATION, NOW). Start 11:00 09/09/2016 Raven Roman R.N. Medication Administered: IV NS (SALINE), Dose: IV Fluids over 1 hour(s), Rate: 1000 mL/hr, Dispensed: 1000 mL bag, Site: #2 left AC. Medication Ordered: IV NS : initial bolus none -, then 1000 mL/hr for X1 (NOW). Given 13:07 09/09/2016 Raven Roman R.N. Medication Administered: ACETAMINOPHEN [PO] (APAP), Dose: 975 mg PO. Medication Ordered: Acetaminophen PO 1,000 mg (NOW).
--- NOTE | 2016-09-09 22:55 | ED MED RECONCILIATION SUMMARY ---
Patient: JOANN AWAN Medication Reconciliation Report [facility] VisitID: [id number] [address] [place] [address] 71y, F Registration Date/Time: 09/09/2016 Weight: 67.1 kg Height/Length: 66 in. BMI: 23.9 ALLERGIES: Sulfa Antibiotics The patient's Home Medications are listed below: CONTINUE TAKING THE FOLLOWING MEDICATIONS: Acetaminophen Oral 650 mg, 4x a day ASA Oral 81mg day Caltrate + D 600mg 1 day Diclofenac Oral 50mg bid Divalproex Sodium Oral 500mg bid Fiberlax day Insulin lantis 16 units hs Levothyroxine Sodium Oral 150 mcg, daily Vitamins Oral 1 pill, daily Simvastatin Oral 20 mg, daily TraMADol HCl Oral 50 mg, 3x a day Vicodin Oral 1-2 tabs q 6 hrs prn The source(s) of the original Home Medication information: Not obtained. The following Medications were given to the patient in the Emergency Department: IV NS IV Fluids bolus 0, then 1000 mL/hr, administered: 09/09/2016 11:00:00 AM Insulin REG [IVP] IVP 10 unit, administered: 09/09/2016 10:48:00 AM Acetaminophen [PO] PO 975 mg, administered: 09/09/2016 1:07:00 PM The following Medications were prescribed to the patient: None.
== END 2016-09-09 15:15 | disposition home or self-care (01) ==
LOC: ED SRH 10:06
DX: E11.65 Type 2 diabetes mellitus with hyperglycemia (principal); I10 Essential (primary) hypertension; E05.00 Thyrotoxicosis with diffuse goiter without thyrotoxic crisis or storm; Z88.5 Allergy status to narcotic agent; Z79.4 Long term (current) use of insulin; Z79.899 Other long term (current) drug therapy; Z79.82 Long term (current) use of aspirin; Z79.891 Long term (current) use of opiate analgesic
CPT/HCPCS: 90004; 90100; 90148; 90301; 90469; 91556; 94001; 94050; 94060; 95059